=== PATIENT | male | born 1980 | race Two or more races ===

== ENCOUNTER → 2020-11-16 15:00 | Outpatient (CLI) | payer OTHER | END | disposition home or self-care (01) | LOC: PPH VACUNA 15:00 | DX: Z23 Encounter for immunization (principal) ==

== ENCOUNTER 2020-12-07 08:15 | Outpatient (CLI) | payer OTHER | END 2020-12-07 08:20 | disposition home or self-care (01) | LOC: PPH VACUNA 08:15 | DX: Z23 Encounter for immunization (principal) ==

== ENCOUNTER → 2021-05-11 13:33 | Outpatient (CLI) | payer OTHER | END | disposition home or self-care (01) | LOC: LAB 13:33 | PROVIDERS: ATTEND Obstetrics & Gynecology | DX: Z20.818 Contact with and (suspected) exposure to other bacterial communicable diseases (principal); Z20.828 Contact with and (suspected) exposure to other viral communicable diseases ==